=== PATIENT | male | born 1985 | race American Indian/Alaskan Native ===

== ENCOUNTER 2022-02-25 23:12 | Emergency (ER) | payer SELFPAY ==
[2022-02-26] MEDS ORDERED: ASPIRIN 325 MG TAB PO ONE (00:02)
--- NOTE | 2022-02-26 03:23 | XRay Report ---
XR chest routine 2V INDICATION / CLINICAL INFORMATION: CHEST PAIN. COMPARISON: None available. FINDINGS: SUPPORT DEVICES: None. HEART /PULMONARY VASCULATURE: No significant abnormality. LUNGS / PLEURA: No significant pulmonary or pleural abnormality. No pneumothorax. ADDITIONAL FINDINGS: No significant additional findings. IMPRESSION: 1. No acute findings. Signer Name: Ryne Peña MD Signed: 02/26/2022 3:19 AM Workstation Name: [id number]
[2022-02-26 03:29] LABS: Basophils # (Auto) 0.1 K/mm3 (0.0-0.1); Basophils % (Auto) 0.8 % (0.0-1.8); Eosinophils # (Auto) 0.2 K/mm3 (0.0-0.4); Eosinophils % (Auto) 2.1 % (0.0-4.3); Hematocrit 45.1 % (35.5-45.6); Hemoglobin 15.4 gm/dl (11.8-15.2); Lymphocytes # (Auto) 2.7 K/mm3 (1.2-5.4); Lymphocytes % (Auto) 33.8 % (13.4-35.0); Mean Corpuscular HGB Conc 34 % (32-34); Mean Corpuscular Volume 94 fl (84-94); Monocytes # (Auto) 0.5 K/mm3 (0.0-0.8); Monocytes % (Auto) 6.2 % (0.0-7.3); Platelet Count 192 K/mm3 (140-440); Red Blood Count 4.79 M/mm3 (3.65-5.03)
[2022-02-26 03:50] LABS: Alanine Aminotransferase 19 units/L (7-56); Albumin 4.6 g/dL (3.9-5); BUN/Creatinine Ratio 6; Blood Urea Nitrogen 6 mg/dL (9-20); Calcium 9.5 mg/dL (8.4-10.2); Hemolysis Index 12
[2022-02-26] MEDS ORDERED: KETOROLAC 10 MG TAB PO ONE (10:16)
--- NOTE | 2022-02-26 11:08 | Emergency Department Report ---
ED Chest Pain HPI - General Chief Complaint: Chest Pain Stated Complaint: CHEST PAIN Time Seen by Provider: 02/26/22 10:00 Source: patient Mode of arrival: Ambulatory Limitations: No Limitations - History of Present Illness Initial Comments: 36-year-old black male with no past medical history and no known family history of CAD presents to the emergency department for evaluation of left chest pain. He states that pain started a few hours prior to arrival, it was isolated to the left chest area, he described it as a sharp pain that was 8 of 10 at its worst. He denies shortness of breath, nausea, vomiting, diaphoresis but states that he did have some intermittent dizziness along with a headache. He states that pain is worse with palpation and movement. He has not taken any medication for symptoms. MD Complaint: chest pain -: Gradual, hour(s) Onset: during rest Pain Location: left chest Pain Radiation: none Severity: severe Severity scale (0 -10): 8 Quality: sharp Consistency: intermittent Worsens With: palpation, movement re: denies: nausea, vomting, diaphoresis, dyspnea, sense of impending doom Other Symptoms: denies: cough, fever, syncope, rash, acid taste in mouth, leg swelling, palpitations, burping Treatments Prior to Arrival: none Aspirin use within the Past 7 Days: (0) No - Related Data Allergies Allergy/AdvReac Type Severity Reaction Status Date / Time No Known Allergies Allergy Verified 02/26/22 00:02 Heart Score - HEART Score History: Slightly suspicious EKG: Normal Age: < 45 Risk factors: 1-2 risk factors Troponin: < normal limit HEART Score: 1 - EKG Read Time Time EKG Completed: 23:17 EKG Read Time: 23:25 - Critical Actions Critical Actions: 0-3 pts:0.9-1.7%risk of adverse cardiac event.Candidate for discharge ED Review of Systems ROS: Stated complaint: CHEST PAIN Other details as noted in HPI Comment: All other systems reviewed and negative Constitutional: denies: chills, fever Eyes: denies: vision change ENT: denies: throat pain, dental pain, congestion Respiratory: denies: cough, orthopnea, shortness of breath, SOB with exertion, SOB at rest, stridor, wheezing Cardiovascular: chest pain. denies: palpitations, dyspnea on exertion, orthopnea, edema, syncope, paroxysmal nocturnal dyspnea Gastrointestinal: denies: abdominal pain, nausea, vomiting, diarrhea, hematemesis, melena, hematochezia Genitourinary: denies: urgency, dysuria, frequency, hematuria, discharge, te sticular pain Musculoskeletal: denies: back pain Skin: denies: rash, lesions Neurological: headache. denies: weakness, numbness, paresthesias, confusion, abnormal gait Psychiatric: denies: anxiety ED Physical Exam - General Limitations: No Limitations General appearance: alert, in no apparent distress - Head Head exam: Present: atraumatic, normocephalic - Eye Eye exam: Present: normal appearance. Absent: scleral icterus, conjunctival injection, periorbital swelling, periorbital tenderness - Neck Neck exam: Present: normal inspection, full ROM. Absent: tenderness, lymphadenopathy, thyromegaly - Respiratory Respiratory exam: Present: normal lung sounds bilaterally, chest wall tenderness. Absent: respiratory distress, wheezes, rales, rhonchi, stridor - Cardiovascular Cardiovascular Exam: Present: regular rate, normal heart sounds - GI/Abdominal GI/Abdominal exam: Present: soft, normal bowel sounds. Absent: distended, tenderness, guarding, rebound, rigid - Extremities Exam Extremities exam: Present: normal inspection, full ROM, normal capillary refill. Absent: tenderness, pedal edema, joint swelling, calf tenderness - Back Exam Back exam: Present: normal inspection. Absent: tenderness, CVA tenderness (R), CVA tenderness (L), vertebral tenderness - Neurological Exam Neurological exam: Present: alert, oriented X3, normal gait - Psychiatric Psychiatric exam: Present: normal affect, normal mood - Skin Skin exam: Present: warm, dry, intact, normal color ED Course Vital Signs 02/25/22 23:23 Temperature 98.6 F Pulse Rate 84 Respiratory 18 Rate Blood Pressure 171/80 O2 Sat by Pulse 96 Oximetry ED Medical Decision Making - Lab Data Result diagrams: 02/26/22 03:15 02/26/22 03:15 - EKG Data EKG shows normal: sinus rhythm Rate: normal - EKG Data Interpretation: no acute changes, normal EKG - Radiology Data Radiology results: report reviewed, image reviewed Chest x-ray: FINDINGS: SUPPORT DEVICES: None. HEART /PULMONARY VASCULATURE: No significant abnormality. LUNGS / PLEURA: No significant pulmonary or pleural abnormality. No pneumothorax. ADDITIONAL FINDINGS: No significant additional findings. IMPRESSION: 1. No acute findings. - Medical Decision Making 36-year-old black male with no past medical history and no known family history of CAD presents to the emergency department for evaluation of left chest pain. He states that pain started a few hours prior to arrival, it was isolated to the left chest area, he described it as a sharp pain that was 8 of 10 at its worst. He denies shortness of breath, nausea, vomiting, diaphoresis but states that he did have some intermittent dizziness along with a headache. He states that pain is worse with palpation and movement. He has not taken any medication for symptoms. Patient noted to have chest wall tenderness on exam. EKG without any acute ischemic changes noted, troponin negative x3, chest x-ray without any acute abnormalities noted. Heart score of 1. Symptoms, assessment, and results most consistent with chest wall tenderness. Patient will be treated with one-time dose of Toradol while in the emergency department and discharged home to use Tylenol and ibuprofen as needed for pain. He is advised to follow-up with primary care provider or cardiology for further evaluation and management. He is advised to return to the emergency department for any concerning symptoms. He verbalized understanding of and agreement with plan of care. Critical care attestation.: If time is entered above; I have spent that time in minutes in the direct care of this critically ill patient, excluding procedure time. ED Disposition Clinical Impression: Chest wall pain Disposition: 01 HOME / SELF CARE / HOMELESS Is pt being admited?: No Does the pt Need Aspirin: No Condition: Stable Instructions: Chest Wall Pain, [id number], Nonspecific Chest Pain, Adult Additional Instructions: Use Tylenol and ibuprofen as needed for pain. Follow-up with primary care provider or cardiology for further evaluation and management. Return to the emergency room as needed Referrals: KATHERINE NARANJO MD [Primary Care Provider] - 3-5 Days MELODY PALACIO MD [Staff Physician] - 3-5 Days Forms: Work/School Release Form(ED) Time of Disposition: 11:45
--- NOTE | 2022-02-26 11:42 | Electrocardiograph Report ---
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
[2022-02-26 12:01] VITALS: BP 148/96
== END 2022-02-26 12:00 | disposition home or self-care (01) ==
LOC: ED 23:12
DX: R07.89 Other chest pain (principal)
CPT/HCPCS: 36415; 71046; 80053; 84484; 85025; 93005; 99284